=== PATIENT | female | born 1965 | race African-American/Black ===

== ENCOUNTER 2017-03-29 11:58 | Emergency (ER) | payer MEDICAID ==
[~2017-03-29] VITALS: Ht 165.1 cm; Wt 98.0 kg
[~2017-03-29 11:58] MED LIST: HYDR12.529 PO; LEVO150T8 PO
[2017-03-29] MEDS ORDERED: IBUPROFEN 600MG TABLET PO ONE (14:00)
[2017-03-29 14:17] VITALS: BP 132/89
== END 2017-03-29 15:39 | disposition home or self-care (01) ==
LOC: ER 14:12
DX: M25.571 Pain in right ankle and joints of right foot (principal); M79.671 Pain in right foot; I10 Essential (primary) hypertension; E03.9 Hypothyroidism, unspecified; S93.401A Sprain of unspecified ligament of right ankle, initial encounter; W10.8XXA Fall (on) (from) other stairs and steps, initial encounter; Y93.89 Activity, other specified; Y92.89 Other specified places as the place of occurrence of the external cause; Z98.890 Other specified postprocedural states; J45.909 Unspecified asthma, uncomplicated
CPT/HCPCS: 73610; 73630; 81025; 99284